=== PATIENT | male | born 1975 | race Caucasian/White ===

== ENCOUNTER 2016-06-11 20:02 | Emergency (ER) | payer SELFPAY ==
[~2016-06-11] VITALS: Ht 172.7 cm; Wt 98.0 kg
[2016-06-11 20:04] VITALS: BP 137/89; PULSE 96; RESP 16; TEMP 98.4; O2SAT 100
--- NOTE | 2016-06-11 20:49 | PD ---
Physical Exam Time Seen by Provider: 20:47 Narrative 41 y/o male here with "sinus pressure" for 2 weeks. Saw an ent in [place] 05/29 , CT sinuses performed 2 days ago, he was told that it was essentially normal. He continues to be in pain which prompted evaluation. vss Seen at triage desk. Awaiting bed placement. Data Data Last Documented VS Vital Signs Date Time Temp Pulse Resp B/P Pulse Ox O2 Delivery O2 Flow Rate FiO2 06/11/16 20:04 98.4 96 16 137/89 100 Room Air [facility] Medical Record Reviewed: Yes Supervised Visit with ROLA: No Julio C Gallegos June 11, 2016 20:49
== END 2016-06-11 21:00 | disposition left against medical advice (07) ==
LOC: EDUNIT# 20:02 → NED 20:02
DX: J34.89 Other specified disorders of nose and nasal sinuses (principal); Z53.21 Procedure and treatment not carried out due to patient leaving prior to being seen by health care provider
CPT/HCPCS: 99281; 99282

== ENCOUNTER 2016-07-16 13:36 | Emergency (ER) | payer OTHER ==
[~2016-07-16] VITALS: Ht 172.7 cm; Wt 109.2 kg
[2016-07-16 13:47] VITALS: BP 152/101; PULSE 107; RESP 16; TEMP 98.5; O2SAT 98
[2016-07-16 14:15] VITALS: PULSE 82
--- NOTE | 2016-07-16 14:16 | PD ---
HPI Chief Complaint: ENT Complaint Time Seen by Provider: 14:11 Travel History International Travel<30 days: No Contact w/Intl Traveler<30days: No Traveled to known affect area: No History of Present Illness HPI 41-year-old male presents to the emergency room for evaluation of severe sinus pressure, sinusitis, postnasal drip, nonproductive cough, and mild sore throat the past 5 days. Patient states he was told by his ENT doctor to look out for these symptoms to monitor his sinuses flareup. He could not get into his ENT doctor for 3 weeks so he decided to come to the emergency room. Patient states that sinusitis is severe he had to work this morning. He is requesting a note to return. He has been taking montelukast which moderately improved his symptoms. Postnasal drip is causing him to feel "queasy." He states that when he does vomit, it is all white mucus. Patient denies fever and chills. PFSH Past Medical History Cancer: No Cardiovascular Problems: Yes High Cholesterol: Yes Diminished Hearing: No Gastrointestinal Disorders: Yes GERD: Yes Genitourinary: No Hypertension: Yes Immune Disorder: No Musculoskeletal: Yes Neurologic: No Psychiatric: No Respiratory: No Tetanus Vaccination: > 5 Years Influenza Vaccination: No Past Surgical History Appendectomy: Yes Neurologic Surgery: Yes Other Surgery: Yes Social History Alcohol Use: No Tobacco Use: No (1/2 ppd) Substance Use: No Allergies-Medications (Allergen,Severity, Reaction): Coded Allergies: Keflex (Verified Allergy, Unknown, 07/16/16) as child Reported Meds & Prescriptions Reported Meds & Active Scripts Active Reported Montelukast (Montelukast Sodium) 4 Mg Chew 4 Mg CHEW HS Review of Systems Except as stated in HPI: all other systems reviewed are Neg Physical Exam Narrative GENERAL: Well-nourished, obese male in no acute distress. Afebrile. Ambulatory. SKIN: Focused skin assessment warm/dry. HEAD: Normocephalic. EYES: No scleral icterus. No injection or drainage. NECK: Supple, trachea midline. No JVD or lymphadenopathy. ENT: Mucosa pink and moist. No erythema or exudates. No uvular edema. No uvular , palatal, or tonsillar deviation. Airway patent. Mild to moderate tenderness to palpation of the frontal, sphenoidal, and ethmoid sinuses. Increased pain with leaning forward. EARS: Bilateral pinnae and external canals appear within normal limits. Bilateral tympanic membranes without erythema, dullness or perforation. CARDIOVASCULAR: Regular rate and rhythm without murmurs, gallops, or rubs. RESPIRATORY: Breath sounds equal bilaterally. No accessory muscle use. No crackles, rales, wheezes, or rhonchi. Data Data Last Documented VS Vital Signs Date Time Temp Pulse Resp B/P Pulse Ox O2 Delivery O2 Flow Rate FiO2 07/16/16 14:15 82 07/16/16 13:47 98.5 16 152/101 98 MDM Medical Decision Making Medical Screen Exam Complete: Yes Emergency Medical Condition: Yes Medical Record Reviewed: Yes Differential Diagnosis Sinusitis versus upper respiratory infection versus pneumonia versus bronchitis Narrative Course 41-year-old male presents to the emergency room for evaluation of sinus infection for 5 days. Symptoms include nasal/sinus pressure, nausea, vomiting, and postnasal drip. Patient states he has had sinus infections in the past and knows he is developing one at this time. His ENT doctor could not get him in for 3 weeks. Patient is requesting prednisone, Augmentin, and Zofran for his symptoms. States antibiotic usually make him nauseous and he is already nauseous from the sinus infection. His lung sounds are clear and equal bilaterally. Throat is very mildly erythematous. There is tenderness to palpation over the frontal and axillary sinuses but patient is overall very well appearing. Vital signs stable. Patient was informed that his symptoms do not require prednisone at this time. They're likely viral in nature however patient will be treated for bacterial sinus infection. He will be given amoxicillin (which he has had without problem in the past) and Zofran. Told to follow-up with his ENT and primary care physician or return for worsening symptoms. He understands and agrees to plan. Diagnosis Primary Impression: Acute sinusitis, unspecified Referrals: Primary Care Physician Patient Instructions: General Instructions, Sinusitis (ED) Additional Instructions: Rest and drink plenty of fluids. Take amoxicillin as directed. Take Zofran as directed, as needed for nausea. Follow-up with a primary care physician. Return to the emergency room for worsening symptoms. Med/Other Pt SpecificInfo: Prescription(s) given Scripts Amoxicillin 875 Mg [id number] Mg PO BID 7 Days Ref 0 Prov:James Orantes MD 07/16/16 Ondansetron Odt (Zofran Odt)8 Mg Tab8 Mg SL Q12H PRN (NAUSEA OR VOMITING) #10 TAB Ref 0 Prov:James Orantes MD 07/16/16 Disposition: 01 DISCHARGE HOME Condition: Stable Deana Marie Jul 16, 2016 14:16
[2016-07-16] MEDS ORDERED: AMOX875T PO (14:20)
[2016-07-16] MEDS ORDERED: ZOFR8TAB4 SL (14:20)
== END 2016-07-16 14:33 | disposition home or self-care (01) ==
LOC: EDUNIT# 13:36 → PHEFT 13:36
DX: J01.90 Acute sinusitis, unspecified (principal); E78.00 Pure hypercholesterolemia, unspecified; I10 Essential (primary) hypertension; K21.9 Gastro-esophageal reflux disease without esophagitis
CPT/HCPCS: 99284

== ENCOUNTER 2016-07-30 13:19 | Emergency (ER) | payer OTHER ==
[~2016-07-30] VITALS: Ht 172.7 cm; Wt 109.0 kg
[~2016-07-30 13:19] MED LIST: AMOX875T PO; ZOFR8TAB4 SL
[2016-07-30 13:24] VITALS: BP 164/110; PULSE 90; RESP 18; TEMP 97.7; O2SAT 99
[2016-07-30 13:43] VITALS: BP 157/98; PULSE 90; RESP 18; O2SAT 100
[2016-07-30] MEDS ORDERED: MONT10TA4 PO (13:44)
--- NOTE | 2016-07-30 13:44 | PD ---
HPI Chief Complaint: ENT Complaint Time Seen by Provider: 13:38 Travel History International Travel<30 days: No Contact w/Intl Traveler<30days: No Traveled to known affect area: No History of Present Illness HPI 41-year-old male presents to the emergency room for evaluation of continued sinus pressure, congestion, postnasal drip causing nausea, and nonproductive cough. Patient was seen 2 weeks ago for the same symptoms and given amoxicillin 875 for 7 days and Zofran. States he took his buttocks as prescribed symptoms have been persisting. He has not been taking any over-the- counter medications. Had a follow-up appointment with his primary care physician 5 days ago but it got canceled. His rescheduled appointment is in 2 days. Patient is requesting a work note for the next 2 days. He denies fever, chills, or vomiting. PFSH Past Medical History Cardiovascular Problems: Yes High Cholesterol: Yes Diminished Hearing: No Gastrointestinal Disorders: Yes GERD: Yes Hypertension: Yes Musculoskeletal: Yes Past Surgical History Appendectomy: Yes Neurologic Surgery: Yes Other Surgery: Yes Social History Alcohol Use: No Tobacco Use: No (1/2 ppd) Substance Use: No Allergies-Medications (Allergen,Severity, Reaction): Coded Allergies: Keflex (Unverified Allergy, Unknown, 07/30/16) as child Reported Meds & Prescriptions Reported Meds & Active Scripts Active Amoxicillin 875 Mg Tab 875 Mg PO BID 7 Days Zofran Odt (Ondansetron Odt) 8 Mg Tab 8 Mg SL Q12H PRN Review of Systems Except as stated in HPI: all other systems reviewed are Neg Physical Exam Narrative GENERAL: Well-nourished, well-developed male in no acute distress. Afebrile. Ambulatory. SKIN: Focused skin assessment warm/dry. HEAD: Normocephalic. EYES: No scleral icterus. No injection or drainage. ENT: Mucosa pink and moist. No erythema or exudates. No uvular edema. No uvular , palatal, or tonsillar deviation. Airway patent. Nasal turbinates appear normal without nasal blood, purulent drainage or septal hematoma. EARS: Bilateral pinnae and external canals appear within normal limits. Bilateral tympanic membranes without erythema, dullness or perforation. NECK: Supple, trachea midline. No JVD or lymphadenopathy. CARDIOVASCULAR: Regular rate and rhythm without murmurs, gallops, or rubs. RESPIRATORY: Breath sounds equal bilaterally. No accessory muscle use. No crackles, rales, wheezes, or rhonchi. GASTROINTESTINAL: Abdomen soft, non-tender, nondistended. Data Data Last Documented VS Vital Signs Date Time Temp Pulse Resp B/P Pulse Ox O2 Delivery O2 Flow Rate FiO2 07/30/16 13:24 97.7 90 18 164/110 99 MDM Medical Decision Making Medical Screen Exam Complete: Yes Emergency Medical Condition: Yes Medical Record Reviewed: Yes Differential Diagnosis URI, sinusitis, bronchitis Narrative Course 41-year-old male presents to the emergency room for evaluation of nonproductive cough, congestion, postnasal drip causing nausea, and sinus pressure for the past 2 weeks. Denies fevers at home. Patient is afebrile and well-appearing in the emergency room. Vital signs stable. Physical exam is unremarkable. No evidence of bacterial infection in the ears, nose, or throat. Lungs sounds clear and equal bilaterally. Abdomen soft, nontender. Sinusitis is likely viral which would explain by antibiotics did not work. No indication for more antibiotics. Patient will be discharged with prescription for montelukast and told to follow up with his primary care physician as planned or return for worsening symptoms. He understands and agrees to plan. Diagnosis Primary Impression: Acute sinusitis, unspecified Referrals: Primary Care Physician Patient Instructions: General Instructions, Sinusitis (ED) Additional Instructions: Rest and drink plenty of fluids. Take montelukast as directed. Take ibuprofen with food as directed, as needed for pain. Follow-up with a primary care physician. Return to the emergency room for worsening symptoms. Med/Other Pt SpecificInfo: Prescription(s) given Disposition: 01 DISCHARGE HOME Condition: Stable Deana Marie Jul 30, 2016 13:44
[2016-07-30] MEDS ORDERED: ZOFR4TAB3 SL (13:46)
== END 2016-07-30 14:04 | disposition home or self-care (01) ==
LOC: PHED 13:19
DX: J01.90 Acute sinusitis, unspecified (principal); E78.00 Pure hypercholesterolemia, unspecified; I10 Essential (primary) hypertension; K21.9 Gastro-esophageal reflux disease without esophagitis
CPT/HCPCS: 99282

== ENCOUNTER 2016-08-13 11:13 | Emergency (ER) | payer OTHER ==
[~2016-08-13] VITALS: Ht 172.7 cm; Wt 106.5 kg
[~2016-08-13 11:13] MED LIST changes: -AMOX875T PO; +MONT10TA4 PO; +ZOFR4TAB3 SL; -ZOFR8TAB4 SL
[2016-08-13 11:20] VITALS: BP 142/85; PULSE 124; RESP 16; TEMP 98.2; O2SAT 99
[2016-08-13] MEDS ORDERED: COZA50TA PO (11:31)
[2016-08-13] MEDS ORDERED: OMEP40CA2 PO (11:31)
--- NOTE | 2016-08-13 11:56 | PD ---
HPI Chief Complaint: Abdominal Pain Time Seen by Provider: 11:42 Travel History International Travel<30 days: No Contact w/Intl Traveler<30days: No Traveled to known affect area: No History of Present Illness HPI This 41-year-old male says he been sick since Saturday. Saturday night he went out to eat at [employer]. He woke up Saturday and had some vomiting. The vomiting became increasingly severe throughout the day and he vomited until about 3:00 in the morning on Saturday. He's been having some intermittent abdominal cramps. He has not vomited since then but he has had some residual cramping. He's been taking some ibuprofen with improvement. He's been able to drink some fluids. He has no history of abdominal surgery. He is generally healthy. PFSH Past Medical History Hx Anticoagulant Therapy: No Cardiovascular Problems: Yes High Cholesterol: Yes Diabetes: No Diminished Hearing: No Gastrointestinal Disorders: Yes GERD: Yes Hypertension: Yes Musculoskeletal: Yes Tetanus Vaccination: Unknown Influenza Vaccination: No Past Surgical History Appendectomy: Yes Neurologic Surgery: Yes Other Surgery: Yes Social History Alcohol Use: Yes (RARE) Tobacco Use: Yes (1/2 ppd) Substance Use: No Allergies-Medications (Allergen,Severity, Reaction): Coded Allergies: Keflex (Unverified Allergy, Unknown, 08/13/16) as child Reported Meds & Prescriptions Reported Meds & Active Scripts Active Montelukast (Montelukast Sodium) 10 Mg Tab 10 Mg PO HS Reported Cozaar (Losartan Potassium) 50 Mg Tab 50 Mg PO DAILY Omeprazole 40 Mg Cap 40 Mg PO DAILY Review of Systems General / Constitutional: No: Fever, Chills Eyes: No: Diploplia, Blurred Vision HENT: No: Headaches, Vertigo Cardiovascular: No: Chest Pain or Discomfort, Palpitations Respiratory: No: Cough, Shortness of Breath Gastrointestinal: Positive: Nausea, Vomiting, Abdominal Pain, No: Diarrhea Genitourinary: No: Urgency, Frequency Musculoskeletal: No: Myalgias, Arthralgias Skin: No Rash Neurologic: No: Dizziness, Syncope Endocrine: No: Heat Intolerance Physical Exam Narrative GENERAL: Well-developed male. SKIN: Focused skin assessment warm/dry. HEAD: Atraumatic. Normocephalic. EYES: Pupils equal and round. No scleral icterus. No injection or drainage. ENT: No nasal bleeding or discharge. Mucous membranes pink and moist. NECK: Trachea midline. No JVD. CARDIOVASCULAR: Regular rate and rhythm. No murmur appreciated. RESPIRATORY: No accessory muscle use. Clear to auscultation. Breath sounds equal bilaterally. GASTROINTESTINAL: Abdomen soft, non-tender, nondistended. Hepatic and splenic margins not palpable. MUSCULOSKELETAL: No obvious deformities. No clubbing. No cyanosis. No edema. NEUROLOGICAL: Awake and alert. No obvious cranial nerve deficits. Motor grossly within normal limits. Normal speech. PSYCHIATRIC: Appropriate mood and affect; insight and judgment normal. Data Data Last Documented VS Vital Signs Date Time Temp Pulse Resp B/P Pulse Ox O2 Delivery O2 Flow Rate FiO2 08/13/16 11:32 16 08/13/16 11:20 98.2 124 142/85 99 MDM Medical Decision Making Medical Screen Exam Complete: Yes Emergency Medical Condition: Yes Medical Record Reviewed: Yes Differential Diagnosis Differential includes viral syndrome, gastroenteritis, food poisoning, dehydration Narrative Course Patient does not appear dehydrated at this time. It appears that is improving gradually. I will prescribe Bentyl and Zofran for him to use. Diagnosis Primary Impression: Food poisoning Departure Forms: Tests/Procedures, Work Release Enter return to work date: Aug 14, 2016 Scripts Dicyclomine 20 Mg Tab20 Mg PO QID #20 TAB Ref 0 Prov:Rizwan Domingo MD 08/13/16 Ondansetron Odt (Zofran Odt)4 Mg Tab4 Mg SL Q8HR PRN (Nausea/Vomiting) #10 TAB Ref 0 Prov:Rizwan Domingo MD 08/13/16 Ibuprofen 800 Mg [id number] Mg PO Q8H PRN (Pain/Inflammation) #20 TAB Ref 0 Prov:Rizwan Domingo MD 08/13/16 Disposition: 01 DISCHARGE HOME Condition: Stable Rizwan Domingo MD Aug 13, 2016 11:56
[2016-08-13] MEDS ORDERED: ZOFR4TAB3 SL (12:03)
[2016-08-13] MEDS ORDERED: IBUP800T23 PO (12:03)
[2016-08-13] MEDS ORDERED: DICY20TA10 PO (12:03)
== END 2016-08-13 12:19 | disposition home or self-care (01) ==
LOC: PHED 11:13
DX: T62.91XA Toxic effect of unspecified noxious substance eaten as food, accidental (unintentional), initial encounter (principal); Y92.511 Restaurant or cafe as the place of occurrence of the external cause; I10 Essential (primary) hypertension; K21.9 Gastro-esophageal reflux disease without esophagitis; F17.210 Nicotine dependence, cigarettes, uncomplicated
CPT/HCPCS: 99284

== ENCOUNTER 2016-08-23 09:01 | Emergency (ER) | payer OTHER ==
[~2016-08-23] VITALS: Ht 172.7 cm; Wt 107.6 kg
[~2016-08-23 09:01] MED LIST changes: +COZA50TA PO; +DICY20TA10 PO; +IBUP800T23 PO; +OMEP40CA2 PO
[2016-08-23 09:08] VITALS: BP 136/96; PULSE 85; RESP 20; TEMP 98.2; O2SAT 100
[2016-08-23] MEDS ORDERED: IBUPROFEN 600 MG TAB PO ONE (09:30)
--- NOTE | 2016-08-23 09:50 | PD ---
HPI Chief Complaint: Injury Time Seen by Provider: :17 Travel History International Travel<30 days: No Contact w/Intl Traveler<30days: No Traveled to known affect area: No History of Present Illness HPI 41-year-old male arrives complaining of moderate constant right wrist pain. It' s worse with palpation. The patient was walking up stairs and stumbled forward into a door striking the dorsal aspect of the right DRUJ. Patient states he'll be unable to work due to the injury. He has no numbness tingling. No other injury reported. Onset sudden. PFSH Past Medical History Hx Anticoagulant Therapy: No Cardiovascular Problems: Yes High Cholesterol: Yes Diabetes: No Diminished Hearing: No Gastrointestinal Disorders: Yes GERD: Yes Hypertension: Yes Musculoskeletal: Yes Past Surgical History Appendectomy: Yes Neurologic Surgery: Yes Other Surgery: Yes Social History Alcohol Use: Yes (RARE) Tobacco Use: Yes (02/14 ppd) Substance Use: No Allergies-Medications (Allergen,Severity, Reaction): Coded Allergies: Keflex (Unverified Allergy, Unknown, as child, 08/23/16) Reported Meds & Prescriptions Reported Meds & Active Scripts Active Ibuprofen 600 Mg Tab 600 Mg PO Q8H PRN Review of Systems General / Constitutional: No: Fever, Chills Musculoskeletal: Positive: Pain Physical Exam Narrative GENERAL: 41-year-old male well-nourished well-developed SKIN: Warm and dry. HEAD: Normocephalic. EYES: No scleral icterus. No injection or drainage. MUSCULOSKELETAL: No cyanosis, or edema. Tenderness palpation along the dorsal aspect of the DRUJ in the right side. 2+ radial ulnar pulses bilaterally. Handgrip is intact bilaterally. There is no gross deformity or overlying skin changes in the region of pain. There is minimal snuffbox tenderness on the right side. BACK: Nontender without obvious deformity. No CVA tenderness. Data Data Last Documented VS Vital Signs Date Time Temp Pulse Resp B/P Pulse Ox O2 Delivery O2 Flow Rate FiO2 08/23/16 09:08 98.2 85 20 136/96 100 Vital signs reviewed Orders Wrist, Complete ([id number]) (08/23/16 09:28) Ice/Cold Pack (08/23/16 09:28) Ibuprofen (Motrin) (08/23/16 09:30) Splinting (08/23/16 ) MDM Medical Decision Making Medical Screen Exam Complete: Yes Emergency Medical Condition: Yes Medical Record Reviewed: Yes Differential Diagnosis Scaphoid fracture, distal radius fracture, dislocation, contusion, sprain Narrative Course Last 24 hours Impressions Wrist X-Ray 08/23/16 0928 Signed Impressions: Service Date/Time: August 09:41 - CONCLUSION: Unremarkable study. Thaddeus Markham MD There is minimal snuffbox tenderness although the rest of the exam is essentially normal. As we can see the wrist x-ray is normal as well. We'll apply a thumb spica and plan for 2 week follow-up with hand surgery. Patient has verbalized understanding. Diagnosis Primary Impression: Wrist injury Qualified Code: S69.91XA - Wrist injury, right, initial encounter Referrals: Herbert Jamison III, MD 2 weeks Primary Care Physician call for appointment Additional Instructions: You have a choice when it comes to health care, and we are glad that you chose [facility]. Hopefully, we have met your expectations on today's visit. You are welcome to return to [facility] at any time, as we are committed to meeting the health care needs of our community. Med/Other Pt SpecificInfo: Prescription(s) given Scripts Ibuprofen 600 Mg Tub389 Mg PO Q8H PRN (PAIN SCALE 6 TO 10) #20 TAB Ref 0 Prov:Robin Pardo MD 08/23/16 Disposition: 01 DISCHARGE HOME Condition: Stable Robin Pardo MD Aug 23, 2016 09:50
--- NOTE | 2016-08-23 10:22 | RADRPT ---
EXAM DATE/TIME: 08/23/2016 09:41 [facility] COMPARISON: No previous studies available for comparison. INDICATIONS : Fall, right wrist pain. MEDICAL HISTORY : None. SURGICAL HISTORY : None. ENCOUNTER: Initial ACUITY: 1 day PAIN SCORE: 8/10 LOCATION: Right wrist FINDINGS: No definite fractures, or dislocations are identified. No definite lytic or sclerotic lesion is seen . The joint spaces are well maintained. CONCLUSION: Unremarkable study. Thaddeus Markham MD on August 23, 2016 at 10:19 Board Certified Radiologist. This report was verified electronically.
[2016-08-23] MEDS ORDERED: IBUP-232 PO (10:27)
== END 2016-08-23 11:12 | disposition home or self-care (01) ==
LOC: PHED 09:01
DX: S69.91XA Unspecified injury of right wrist, hand and finger(s), initial encounter (principal); W10.9XXA Fall (on) (from) unspecified stairs and steps, initial encounter; Y93.01 Activity, walking, marching and hiking
CPT/HCPCS: 73110; 99283; L3808

== ENCOUNTER 2016-10-16 17:08 | Emergency (ER) | payer OTHER ==
[~2016-10-16] VITALS: Ht 172.7 cm; Wt 109.3 kg
[~2016-10-16 17:08] MED LIST changes: -COZA50TA PO; -DICY20TA10 PO; +IBUP-232 PO; -IBUP800T23 PO; -MONT10TA4 PO; -OMEP40CA2 PO; -ZOFR4TAB3 SL
[2016-10-16 17:20] VITALS: BP 160/104; PULSE 100; RESP 18; TEMP 98.8; O2SAT 98
--- NOTE | 2016-10-16 18:50 | PD ---
HPI Chief Complaint: Skin Problem Time Seen by Provider: 18:41 Travel History International Travel<30 days: No Contact w/Intl Traveler<30days: No Traveled to known affect area: No History of Present Illness HPI 41-year-old male presents to the ED for evaluation of 2 day history of redness pain and swelling in the rigid the nose. Patient states that he shaves his eyebrows in that area and thinks he may have nicked it. He denies fevers, chills, nausea, vomiting. He endorses pain that radiates to the tip of the nose. States that he squeezed the area yesterday with a small amount of purulent drainage. He took one 600 mg ibuprofen with mild improvement of pain. PFSH Past Medical History Hx Anticoagulant Therapy: No Cardiovascular Problems: Yes High Cholesterol: Yes Diabetes: No Diminished Hearing: No Gastrointestinal Disorders: Yes GERD: Yes Hypertension: Yes Musculoskeletal: Yes Past Surgical History Appendectomy: Yes Neurologic Surgery: Yes Other Surgery: Yes Social History Alcohol Use: Yes (RARE) Tobacco Use: Yes (/ ppd) Substance Use: No Allergies-Medications (Allergen,Severity, Reaction): Coded Allergies: cephalexin (Unverified Allergy, Unknown, as child, 09/25/16) Reported Meds & Prescriptions Reported Meds & Active Scripts Active Ibuprofen 600 Mg Tab 600 Mg PO Q8H 5 Days Bactroban Topical (Mupirocin) 22 Gm Cream 1 Applic TOPICAL BID Bactrim DS (Sulfamethoxazole-Trimethoprim) 800-160 Mg Tab 1 Tab PO BID Ibuprofen 600 Mg Tab 600 Mg PO Q8H PRN Review of Systems Except as stated in HPI: all other systems reviewed are Neg Physical Exam Narrative GENERAL: Well-nourished, well-developed patient. SKIN: Focused skin assessment warm/dry. SKIN: There is an indurated area in the patient denies which measures about less than 1 cm in diameter. No fluctuance. No pointing. No drainage. There is a zone of inflammation around it but no lymphangitis. HEAD: Normocephalic. EYES: No scleral icterus. No injection or drainage. NECK: Supple, trachea midline. No JVD or lymphadenopathy. CARDIOVASCULAR: Regular rate and rhythm without murmurs, gallops, or rubs. RESPIRATORY: Breath sounds equal bilaterally. No accessory muscle use. GASTROINTESTINAL: Abdomen soft, non-tender, nondistended. MUSCULOSKELETAL: No cyanosis, or edema. BACK: Nontender without obvious deformity. No CVA tenderness. Data Data Last Documented VS Vital Signs Date Time Temp Pulse Resp B/P (MAP) Pulse Ox O2 Delivery O2 Flow Rate FiO2 10/16/16 17:20 98.8 100 18 160/104 (122) 98 MDM Medical Decision Making Medical Screen Exam Complete: Yes Emergency Medical Condition: Yes Differential Diagnosis Folliculitis versus abscess versus cellulitis versus other Narrative Course 41-year-old male presents to the ED for evaluation of 2 day history of redness pain and swelling in the rigid the nose. Patient states that he shaves his eyebrows in that area and thinks he may have nicked it. He denies fevers, chills, nausea, vomiting. He endorses pain that radiates to the tip of the nose. States that he squeezed the area yesterday with a small amount of purulent drainage. He took one 600 mg ibuprofen with mild improvement of pain. Vitals reviewed. Physical exam reveals a nontoxic-appearing white male in no acute distress. He does have an area of induration on the bridge of the nose but there is no fluctuance. Suspect this is folliculitis possibly early cellulitis. Patient's prescribed Bactrim DS twice a day 7 days, Dr. López ointment and a brief course of anti-inflammatories. He is instructed to use warm compresses multiple times daily, avoid squeezing the area, return to ED for worsening symptoms. He indicated understanding of the instructions. He is agreeable with the care plan. He is stable and discharged home. Diagnosis Primary Impression: Folliculitis Referrals: Primary Care Physician Patient Instructions: Folliculitis (ED), General Instructions Additional Instructions: Keep the wound clean, dry and covered. Warm, moist compresses applied 10 minutes at a time prior to 6 times a day will help to relieve pain. Ibuprofen as prescribed to help REDUCE pain and inflammation. Take antibiotics as prescribed. Take medications with small meals to avoid upset stomach. Apply Bactroban ointment 3 times a day as prescribed. Return to the ED for signs of worsening infection including spreading of the redness, warmth, fevers, chills, nausea or vomiting. Otherwise follow-up with primary care provider. Return to the ED for any urgent or emergent medical condition. Med/Other Pt SpecificInfo: Prescription(s) given Scripts Ibuprofen (Ibuprofen) 600 Mg Tab 600 MG PO Q8H for 5 Days, TAB 0 Refills Prov: Vilma Hancock MD 10/16/16 Mupirocin Topical (Bactroban Topical) 22 Gm Cream 1 APPLIC TOPICAL BID for Mgmt Bacterial Infection, #1 TUBE 0 Refills Prov: Vilma Hancock MD 10/16/16 Sulfamethoxazole-Trimethoprim (Bactrim DS) 800-160 Mg Tab 1 TAB PO BID for Infection, #14 TAB 0 Refills Prov: Vilma Hancock MD 10/16/16 Disposition: 01 DISCHARGE HOME Condition: Stable Erin Rogers Oct 16, 2016 18:50
[2016-10-16] MEDS ORDERED: IBUP-232 PO (18:51)
[2016-10-16] MEDS ORDERED: MUPI2%T TOPICAL (18:51)
[2016-10-16] MEDS ORDERED: BACT800T5 PO (18:51)
== END 2016-10-16 18:59 | disposition home or self-care (01) ==
LOC: PHED 17:08 → PHEFT 18:59
DX: L73.9 Follicular disorder, unspecified (principal); E78.00 Pure hypercholesterolemia, unspecified; I10 Essential (primary) hypertension; K21.9 Gastro-esophageal reflux disease without esophagitis; F17.210 Nicotine dependence, cigarettes, uncomplicated
CPT/HCPCS: 99284

== ENCOUNTER 2016-12-03 10:13 | Emergency (ER) | payer OTHER ==
[~2016-12-03] VITALS: Ht 172.7 cm; Wt 111.0 kg
[~2016-12-03 10:13] MED LIST changes: +BACT800T5 PO; +MUPI2%T TOPICAL
[2016-12-03 10:15] VITALS: BP 165/101; PULSE 116; RESP 16; TEMP 98.6; O2SAT 98
[2016-12-03] MEDS ORDERED: OMEP20TA PO (10:39)
--- NOTE | 2016-12-03 10:55 | PD ---
HPI Chief Complaint: Cold / Flu Symptoms Time Seen by Provider: 10:34 Travel History International Travel<30 days: No Contact w/Intl Traveler<30days: No Traveled to known affect area: No History of Present Illness HPI This is a 41-year-old male who presents to the emergency department with 3 days of nonproductive cough, fevers, chills, rhinorrhea and sore throat. His symptoms of been constant, moderate severity and worsening today. At work he vomited because he feels like he has a lot of drainage coming down the back of his throat. His boss sent him home. He does smoke cigarettes. He's had bronchitis in the past. He did get his flu shot a week and a half ago. PFSH Past Medical History Hx Anticoagulant Therapy: No Cardiovascular Problems: Yes High Cholesterol: Yes Diabetes: No Diminished Hearing: No Gastrointestinal Disorders: Yes GERD: Yes Hypertension: Yes Musculoskeletal: Yes Tetanus Vaccination: > 5 Years Influenza Vaccination: Yes Past Surgical History Appendectomy: Yes Neurologic Surgery: Yes Other Surgery: Yes Social History Alcohol Use: Yes (RARE) Tobacco Use: Yes (/ ppd) Substance Use: No Allergies-Medications (Allergen,Severity, Reaction): Coded Allergies: cephalexin (Unverified Allergy, Unknown, as child, 12/03/16) Reported Meds & Prescriptions Reported Meds & Active Scripts Active Promethazine-Codeine Liq 6.25-10 Mg/5 Ml Syrp 5 Ml PO Q6H PRN Zofran Odt (Ondansetron Odt) 4 Mg Tab 4 Mg SL Q6HR PRN Prednisone 20 Mg Tab 40 Mg PO DAILY Take 40 mg (2 tablets) daily for 5 days Azithromycin 250 Mg Tab 250 Mg PO DIRECTED Take 2 tabs (500 mg) on day 1 then 1 tab daily x 4 days. Proair Hfa 8.5 GM Inh (Albuterol Sulfate) 90 Mcg/Act Aer 2 Puff INH Q4-6H PRN 108 mcg/actuation Reported Omeprazole 20 Mg Tab 20 Mg PO DAILY Review of Systems Except as stated in HPI: all other systems reviewed are Neg Physical Exam Narrative GENERAL: Diaphoretic, otherwise well-appearing SKIN: Focused skin assessment warm, moist HEAD: Atraumatic. Normocephalic. EYES: Pupils equal and round. No injection or drainage. ENT: Moist mucous membranes. Poor dentition. Posterior pharyngeal erythema with no exudates. NECK: Trachea midline. No cervical lymphadenopathy. CARDIOVASCULAR: Tachycardic. No murmur appreciated. RESPIRATORY: Mild expiratory wheeze with no increased work of breathing or accessory muscle use. GASTROINTESTINAL: Abdomen soft, non-tender, nondistended. MUSCULOSKELETAL: No obvious deformities. NEUROLOGICAL: Awake and alert. No obvious cranial nerve deficits. Moving all extremities. PSYCHIATRIC: Appropriate mood and affect; insight and judgment normal. Data Data Last Documented VS Vital Signs Date Time Temp Pulse Resp B/P (MAP) Pulse Ox O2 Delivery O2 Flow Rate FiO2 12/03/16 10:35 16 98 Room Air 12/03/16 10:15 98.6 116 165/101 (122) Orders Orders Influenzae A/B Antigen (12/03/16 10:34) MDM Medical Decision Making Medical Screen Exam Complete: Yes Emergency Medical Condition: Yes Differential Diagnosis Bronchitis, pneumonia, influenza, upper respiratory infection Narrative Course This is a 41-year-old male who presents to the emergency department with cough, congestion and sore throat. He is tachycardic and diaphoretic. Influenza test is negative. I suspect the patient has acute bronchitis. He'll be prescribed antibiotic, prednisone and a cough suppressant. Diagnosis Primary Impression: Bronchitis Patient Instructions: General Instructions Additional Instructions: If you develop severe shortness of breath, chest pain, or difficulty breathing return to the emergency department. Use albuterol every 4 hours for the next 2 days. Then use as needed for wheezing. Complete your course of steroids. Complete your course of antibiotics. Follow up with your primary care physician in 2-3 days if your symptoms have not improved. Med/Other Pt SpecificInfo: Prescription(s) given Scripts Promethazine-Codeine Liq (Promethazine-Codeine Liq) 6.25-10 Mg/5 Ml Syrp 5 ML PO Q6H Y for COUGH AND/OR COLD SYMPTOMS, #100 ML 0 Refills Prov: Rebecca Plunkett MD 12/03/16 Ondansetron Odt (Zofran Odt) 4 Mg Tab 4 MG SL Q6HR Y for Nausea/Vomiting, #15 TAB 0 Refills Prov: Rebecca Plunkett MD 12/03/16 Prednisone (Prednisone) 20 Mg Tab 40 MG PO DAILY, #10 TAB 0 Refills Take 40 mg (2 tablets) daily for 5 days Prov: Rebecca Plunkett MD 12/03/16 Azithromycin (Azithromycin) 250 Mg Tab 250 MG PO DIRECTED for Infection, #6 TAB 0 Refills Take 2 tabs (500 mg) on day 1 then 1 tab daily x 4 days. Prov: Rebecca Plunkett MD 12/03/16 Albuterol 8.5 GM Inh (Proair Hfa 8.5 GM Inh) 90 Mcg/Act Aer 2 PUFF INH Q4-6H Y for SHORTNESS OF BREATH, #1 INHALER 0 Refills 108 mcg/actuation Prov: Rebecca Plunkett MD 12/03/16 Disposition: 01 DISCHARGE HOME Condition: Stable Rebecca Plunkett MD Dec 03, 2016 10:55
[2016-12-03] MEDS ORDERED: ZOFR4TAB3 SL (11:23)
[2016-12-03] MEDS ORDERED: PROM6.256 PO (11:23)
[2016-12-03] MEDS ORDERED: ALBUAER3 INH (11:23)
[2016-12-03] MEDS ORDERED: AZIT250T3 PO (11:23)
[2016-12-03] MEDS ORDERED: PRED20 PO (11:23)
[2016-12-03 11:33] VITALS: BP 156/97
== END 2016-12-03 11:35 | disposition home or self-care (01) ==
LOC: PHED 10:13
DX: J40 Bronchitis, not specified as acute or chronic (principal); R50.9 Fever, unspecified; J34.89 Other specified disorders of nose and nasal sinuses; R07.0 Pain in throat; R11.10 Vomiting, unspecified; I10 Essential (primary) hypertension; E78.00 Pure hypercholesterolemia, unspecified; F17.200 Nicotine dependence, unspecified, uncomplicated; Z86.79 Personal history of other diseases of the circulatory system; Z87.19 Personal history of other diseases of the digestive system; Z87.39 Personal history of other diseases of the musculoskeletal system and connective tissue
CPT/HCPCS: 87804; 99284

== ENCOUNTER 2016-12-17 21:59 | Emergency (ER) | payer OTHER ==
[~2016-12-17] VITALS: Ht 172.7 cm; Wt 111.0 kg
[~2016-12-17 21:59] MED LIST changes: +ALBUAER3 INH; +AZIT250T3 PO; -BACT800T5 PO; -IBUP-232 PO; -MUPI2%T TOPICAL; +OMEP20TA93 PO; +PRED20 PO; +PROM6.256 PO; +ZOFR4TAB3 SL
[2016-12-17 22:38] VITALS: BP 151/92; PULSE 106; RESP 18; TEMP 98.2; O2SAT 97
[2016-12-17 23:33] VITALS: BP 165/108; PULSE 100; RESP 18; O2SAT 98
--- NOTE | 2016-12-18 00:56 | PD ---
HPI Chief Complaint: ENT Complaint Time Seen by Provider: 01:02 Travel History International Travel<30 days: No Contact w/Intl Traveler<30days: No Traveled to known affect area: No History of Present Illness HPI 41-year-old male presents to the emergency department for complaint of sore throat and sinus infection. Patient states he's completed a course of oral antibiotic Augmentin and oral steroids but continues to have sore throat and is concerned that perhaps he needs to have an additional antibiotic. Patient states he typically responds well to steroid therapy and azithromycin. Patient is also concerned he might have a throat infection. Patient states that he continues to have some irritation and has not had time to follow-up with an gear repairer. Patient is also concerned that he may have the flu. Patient is unable to identify exacerbating or alleviating factors. Patient's not had fever. PFSH Past Medical History Narrative Medical Hypertension dyslipidemia tobacco use nursing notes reviewed Hx Anticoagulant Therapy: No Cardiovascular Problems: Yes High Cholesterol: Yes Diabetes: No Diminished Hearing: No Gastrointestinal Disorders: Yes GERD: Yes Hypertension: Yes Musculoskeletal: Yes Tetanus Vaccination: > 5 Years Influenza Vaccination: Yes Past Surgical History Appendectomy: Yes Neurologic Surgery: Yes Other Surgery: Yes Social History Alcohol Use: Yes (RARE) Tobacco Use: Yes (02/14 ppd) Substance Use: No Allergies-Medications (Allergen,Severity, Reaction): Coded Allergies: cephalexin (Unverified Allergy, Unknown, as child, 12/03/16) Reported Meds & Prescriptions Reported Meds & Active Scripts Active Prednisone 20 Mg Tab 20 Mg PO DAILY 3 Days Promethazine-Codeine Liq 6.25-10 Mg/5 Ml Syrp 5 Ml PO Q6H PRN Zofran Odt (Ondansetron Odt) 4 Mg Tab 4 Mg SL Q6HR PRN Prednisone 20 Mg Tab 40 Mg PO DAILY Take 40 mg (2 tablets) daily for 5 days Azithromycin 250 Mg Tab 250 Mg PO DIRECTED Take 2 tabs (500 mg) on day 1 then 1 tab daily x 4 days. Proair Hfa 8.5 GM Inh (Albuterol Sulfate) 90 Mcg/Act Aer 2 Puff INH Q4-6H PRN 108 mcg/actuation Reported Omeprazole 20 Mg Tab 20 Mg PO DAILY Review of Systems Except as stated in HPI: all other systems reviewed are Neg HENT: Positive: Sore Throat, Congestion, No: Lightheadedness Cardiovascular: No: Chest Pain or Discomfort Respiratory: No: Shortness of Breath Gastrointestinal: No: Vomiting, Abdominal Pain Genitourinary: No: Flank Pain Musculoskeletal: No: Myalgias, Arthralgias Skin: No Rash Neurologic: No: Weakness Psychiatric: No: Anxiety Hematologic/Lymphatic: No: Lymph Node Enlargement Physical Exam Narrative GENERAL: Well-developed well-nourished male in no acute distress no respiratory distress SKIN: Warm and dry. HEAD: Normocephalic. EYES: No scleral icterus. No injection or drainage. ENT mild tenderness to percussion over the maxillary sinuses no frontal sinus tenderness airways patent mucous membranes moist tympanic membranes no redness dullness or loss of landmarks NECK: Supple, trachea midline. No JVD or lymphadenopathy. No meningismus no nuchal rigidity. CARDIOVASCULAR: Regular rate and rhythm without murmurs, gallops, or rubs. RESPIRATORY: Breath sounds equal bilaterally. No accessory muscle use. GASTROINTESTINAL: Abdomen soft, non-tender, nondistended. MUSCULOSKELETAL: No cyanosis, or edema. BACK: Nontender without obvious deformity. No CVA tenderness. Data Data Last Documented VS Orders Orders Influenzae A/B Antigen (12/18/16 00:30) Group A Rapid Strep Screen (12/18/16 00:31) Ed Discharge Order (12/18/16 01:02) Strep Culture (Group A) (12/18/16 00:37) Clonidine (Catapres) (12/18/16 01:15) MDM Medical Decision Making Medical Screen Exam Complete: Yes Emergency Medical Condition: Yes Medical Record Reviewed: Yes Differential Diagnosis Rhinosinusitis, bacterial sinusitis, allergic rhinitis, uncontrolled hypertension, adverse medication reaction Narrative Course Patient is currently on steroid and antibiotic therapy and taking decongestants recommend patient discontinue oral decongestant use and may use as needed infrequently inhaled decongestant for localized medication effect. Patient provided with prescription for antihypertensive but declines prescription as he reveals that this time that he takes blood pressure medication but has not been taking the medication. Patient is encouraged to follow-up with his primary care provider and his gear repairer. Patient is informed his flu test and rapid strep test are negative. Diagnosis Primary Impression: Acute sinusitis, unspecified Referrals: Ear / Nose / Throat Specialist call for appointment Primary Care Physician call for appointment Patient Instructions: General Instructions Med/Other Pt SpecificInfo: Prescription(s) given Scripts Prednisone (Prednisone) 20 Mg Tab 20 MG PO DAILY for 3 Days, #3 TAB 0 Refills Prov: Candy Lewis MD 12/18/16 Disposition: 01 DISCHARGE HOME Condition: Stable Candy Lewis MD Dec 18, 2016 00:56
[2016-12-18] MEDS ORDERED: PRED20 PO (01:03)
[2016-12-18 01:12] VITALS: BP 170/106; PULSE 100; RESP 18; O2SAT 95
[2016-12-18] MEDS ORDERED: cloNIDine HCL 0.1 MG TAB PO ONE (01:15)
[2016-12-18 01:24] VITALS: BP 163/90
== END 2016-12-18 01:28 | disposition home or self-care (01) ==
LOC: PHED 21:59
DX: J01.90 Acute sinusitis, unspecified (principal); I10 Essential (primary) hypertension; E78.00 Pure hypercholesterolemia, unspecified; F17.210 Nicotine dependence, cigarettes, uncomplicated; Z79.2 Long term (current) use of antibiotics; Z79.899 Other long term (current) drug therapy
CPT/HCPCS: 87081; 87804; 87880; 99283

== ENCOUNTER 2017-07-09 08:53 | Emergency (ER) | payer OTHER ==
[~2017-07-09] VITALS: Ht 172.7 cm; Wt 115.5 kg
[2017-07-09 09:00] VITALS: BP 145/83; PULSE 70; RESP 18; TEMP 98.2; O2SAT 98
[2017-07-09] MEDS ORDERED: LOSA50TA PO (09:23)
[2017-07-09] MEDS ORDERED: METO25TA3 PO (09:23)
[2017-07-09] MEDS ORDERED: MONT10TA2 PO (09:23)
[2017-07-09] MEDS ORDERED: IBUP1TAB7 PO (09:23)
[2017-07-09] MEDS ORDERED: MEDR4PAK PO (09:32)
[2017-07-09] MEDS ORDERED: AUGM875T3 PO (09:32)
[2017-07-09] MEDS ORDERED: ZOFR4TAB3 SL (09:32)
--- NOTE | 2017-07-09 09:33 | PD ---
HPI Chief Complaint: Cold / Flu Symptoms Time Seen by Provider: 09:23 Travel History International Travel<30 days: No Contact w/Intl Traveler<30days: No Traveled to known affect area: No History of Present Illness HPI 42y male with a history of sinusitis presents to the ED c/o R parasinus pressure , productive cough, and cold-like symptoms for 2 days. Says initially he started developing frontal sinus tenderness and this migrated to the right upper nasal area. He works at a [employer] and likely picked up an illness from work. He says his cough is productive with clear sputum. He denies fevers or chills. Denies chest pain or shortness of breath. Says that he would normally see his primary care physician however, his primary care physician is out of town for the next 2 days. He says that when he starts developing the symptoms he gets a more severe upper respiratory type of infection. He said he would like to avoid this. PFSH Past Medical History Hx Anticoagulant Therapy: No Cardiovascular Problems: Yes High Cholesterol: Yes Diabetes: No Diminished Hearing: No Gastrointestinal Disorders: Yes GERD: Yes Headaches: Yes Hypertension: Yes Musculoskeletal: Yes Influenza Vaccination: Yes Past Surgical History Appendectomy: Yes Neurologic Surgery: Yes Other Surgery: Yes Social History Alcohol Use: Yes (RARE) Tobacco Use: Yes (1/2 ppd) Substance Use: No Allergies-Medications (Allergen,Severity, Reaction): Coded Allergies: cephalexin (Unverified Allergy, Unknown, as child, 12/03/16) Reported Meds & Prescriptions Reported Meds & Active Scripts Active Medrol Dosepak (Methylprednisolone) 4 Mg Dspk 4 Mg PO DIRECTED Per Pharmacist direction Zofran Odt (Ondansetron Odt) 4 Mg Tab 4 Mg SL Q8HR PRN 5 Days Augmentin (Amoxicillin-Clavulanate) 875-125 Mg Tab 1 Tab PO BID Zofran Odt (Ondansetron Odt) 4 Mg Tab 4 Mg SL Q6HR PRN Reported Singulair (Montelukast Sodium) 10 Mg Tab 10 Mg PO HS Ibuprofen 800 Mg Tab 800 Mg PO DAILY Metoprolol Tartrate 25 Mg Tab 25 Mg PO DAILY Losartan (Losartan Potassium) 50 Mg Tab 50 Mg PO DAILY Omeprazole 20 Mg Tab 20 Mg PO DAILY Review of Systems Except as stated in HPI: all other systems reviewed are Neg Physical Exam Narrative GENERAL: Well-nourished, well-developed patient, in NAD SKIN: Focused skin assessment warm/dry. No rashes or lesions. HEAD: Normocephalic. Atraumatic. EYES: No scleral icterus. No injection or drainage. PERRLA, EOMI Poor dentition. THROAT: No pharyngeal injection, exudates, or tonsillar hypertrophy. Airway is patent. Mild TTP to R ethmoid sinus region, No TTP to frontal sinuses. NECK: Supple, trachea midline. No JVD or lymphadenopathy. No meningismus. CARDIOVASCULAR: Regular rate and rhythm without murmurs, gallops, or rubs. RESPIRATORY: Breath sounds equal bilaterally. No accessory muscle use. No wheezes, rales, or rhonchi MUSCULOSKELETAL: No cyanosis, or edema. BACK: Nontender without obvious deformity. No CVA tenderness. Data Data Last Documented VS Vital Signs Date Time Temp Pulse Resp B/P (MAP) Pulse Ox O2 Delivery O2 Flow Rate FiO2 07/09/17 09:00 98.2 70 18 145/83 (103) 98 Orders Orders Ed Discharge Order (07/09/17 09:34) MDM Medical Decision Making Medical Screen Exam Complete: Yes Emergency Medical Condition: Yes Differential Diagnosis influenza, URI, pneumonia, bronchitis, pneumonitis, bronchospasm, sinusitis Narrative Course 42y male with a history of sinusitis presents to the ED c/o R parasinus pressure , productive cough, and cold-like symptoms for 2 days. Says initially he started developing frontal sinus tenderness and this migrated to the right upper nasal area. He works at a [employer] and likely picked up an illness from work. He says his cough is productive with clear sputum. He denies fevers or chills. Denies chest pain or shortness of breath. Says that he would normally see his primary care physician however, his primary care physician is out of town for the next 2 days. He says that when he starts developing the symptoms he gets a more severe upper respiratory type of infection. He said he would like to avoid this. Vital signs are stable. This patient explains that his upper respiratory and sinus infections become severe more frequently than not. He says that Augmentin, Medrol Dosepak work well for him and decreased amount of time that he is sick. In addition, he asked for Zofran as he has nausea with taking Augmentin. He is advised to follow-up with his primary care physician. Return for worsening or persistent symptoms. Diagnosis Primary Impression: Acute sinusitis, unspecified Qualified Codes: J01.00 - Acute maxillary sinusitis, unspecified Referrals: Primary Care Physician Departure Forms: Tests/Procedures, Work Release Enter return to work date: Jul 12, 2017 Additional Instructions: You may use a drop of honey and lemon in a cup of warm water to soothe your cough. (If you are greater than 1 year old ) Ensure good hydration and a nutritious diet. Note that viral infection symptoms may last for several weeks if you have a viral illness. Follow up with your primary physician within 2-3 days. Return to the ED for worsening or persistent symptoms. Scripts Methylprednisolone Dosepak (Medrol Dosepak) 4 Mg Dspk 4 MG PO DIRECTED, #1 DSPK 0 Refills Per Pharmacist direction Prov: Dawn Anderson DO 07/09/17 Ondansetron Odt (Zofran Odt) 4 Mg Tab 4 MG SL Q8HR Y for Nausea/Vomiting for 5 Days, #15 TAB 0 Refills Prov: Dawn Anderson DO 07/09/17 Amoxicillin-Clavulanate (Augmentin) 875-125 Mg Tab 1 TAB PO BID for Infection, #20 TAB 0 Refills Prov: Dawn Anderson DO 07/09/17 Disposition: 01 DISCHARGE HOME Condition: Stable Laura Espinoza July 09, 2017 09:33
== END 2017-07-09 09:58 | disposition home or self-care (01) ==
LOC: PHEFT 08:53
DX: J01.90 Acute sinusitis, unspecified (principal); E78.00 Pure hypercholesterolemia, unspecified; K21.9 Gastro-esophageal reflux disease without esophagitis; I10 Essential (primary) hypertension; F17.200 Nicotine dependence, unspecified, uncomplicated; Z88.8 Allergy status to other drugs, medicaments and biological substances; Z79.899 Other long term (current) drug therapy
CPT/HCPCS: 99283